=== PATIENT | female | born 2000 | race Caucasian/White ===

== ENCOUNTER 2020-05-05 17:14 | Emergency (ER) | payer OTHER ==
[2020-05-05 17:19] VITALS: BP 138/92; PULSE 94; TEMP 98; BMI 54.9
== END 2020-05-05 20:12 | disposition home or self-care (01) ==
LOC: FER 17:14
DX: K59.00 Constipation, unspecified (principal)
CPT/HCPCS: 76856-TC; 84703; 99284-25

== ENCOUNTER 2021-08-15 12:43 | Emergency (ER) | payer OTHER ==
[2021-08-15 12:58] VITALS: BP 143/73; PULSE 102; TEMP 98.9; BMI 39.4
[2021-08-15] MEDS ORDERED: BACITRACIN 15 GM TUBE TOPICAL OINTMENT TP ONE (13:39)
[2021-08-15] MEDS ORDERED: BACITRACIN 15 GM TUBE TOPICAL OINTMENT ONE (13:39)
== END 2021-08-15 14:20 | disposition home or self-care (01) ==
LOC: JERFT 12:43 → JER 12:43 → JERFT 14:20
DX: S61.441A Puncture wound with foreign body of right hand, initial encounter (principal); W45.8XXA Other foreign body or object entering through skin, initial encounter
CPT/HCPCS: 73130-TC-RT-FY; 99283-25

== ENCOUNTER 2021-10-18 19:35 | Emergency (ER) | payer OTHER ==
[2021-10-18 19:42] VITALS: BP 134/84; PULSE 93; RESP 18; TEMP 98.8; BMI 42.0
[2021-10-18 20:05] LABS: HCG,QUALITATIVE URINE Negative
[2021-10-18] MEDS ORDERED: LACTULOSE 20 GM/30 ML UDC (FOR ORAL USE ONLY) PO ONE (20:07)
[2021-10-18] MEDS ORDERED: LACTULOSE 20 GM/30 ML UDC (FOR ORAL USE ONLY) ONE (20:09)
[2021-10-18] MEDS ORDERED: POLYETHYLENE GLYCOL (HEALTHYLAX) 3350 17 GM PACKET PO SCH (20:15)
[2021-10-18 20:16] LABS: EPITHELIAL CELLS FEW /hpf
== END 2021-10-18 20:18 | disposition home or self-care (01) ==
LOC: FER 19:35
DX: K59.01 Slow transit constipation (principal)
CPT/HCPCS: 81003; 81015; 84703; 99283-25

== ENCOUNTER 2023-12-28 19:20 | Emergency (ER) | payer OTHER ==
[2023-12-28 19:55] VITALS: BP 118/88; PULSE 103; RESP 18; TEMP 99.1; BMI 44.6
[2023-12-28] MEDS ORDERED: IBUPROFEN 600 MG TABLET (FP) PO ONE (20:58)
[2023-12-28] MEDS ORDERED: MAG HYDROX/AL HYDROX/SIMETH 30 ML UNIT-DOSE CUP ONE (20:58)
[2023-12-28] MEDS: IBUPROFEN 600 MG TABLET (FP) PO ONE (21:01)
[2023-12-28] MEDS: MAG HYDROX/AL HYDROX/SIMETH 30 ML UNIT-DOSE CUP PO ONE (21:02)
== END 2023-12-28 21:07 | disposition home or self-care (01) ==
LOC: FER 19:20
DX: M94.0 Chondrocostal junction syndrome [Tietze] (principal); R07.9 Chest pain, unspecified
CPT/HCPCS: 71046-TC-FY; 93005; 99284-25

== ENCOUNTER 2024-01-16 19:22 | Emergency (ER) | payer OTHER ==
[2024-01-16 19:33] VITALS: BMI 44.6
[2024-01-16 19:58] VITALS: BP 113/78; PULSE 74; RESP 16; TEMP 98.2
== END 2024-01-16 19:57 | disposition home or self-care (01) ==
LOC: FER 19:22
DX: H11.31 Conjunctival hemorrhage, right eye (principal)
CPT/HCPCS: 99283-25